=== PATIENT | female | born 1995 | race Caucasian/White ===

== ENCOUNTER 2023-03-25 13:49 | Emergency (ER) | payer BC ==
[~2023-03-25] VITALS: Ht 149.9 cm; Wt 81.6 kg
[2023-03-25] MEDS ORDERED: BACITRACIN ZINC OINT 15 GM TUBE ONE (14:42)
[2023-03-25] MEDS ORDERED: DOXYCYCLINE HYCLATE 100 MG TABLET ONE (14:42)
[2023-03-25] MEDS ORDERED: NEOMY/BACITRA/POLYMYXIN B OINT UD PACKET TP ONE (14:45)
[2023-03-25] MEDS ORDERED: DOXYCYCLINE HYCLATE 100 MG TABLET PO ONE (14:45)
[2023-03-25 15:01] VITALS: BP 141/84; TEMP 98.3; O2SAT 99
== END 2023-03-25 15:02 | disposition home or self-care (01) ==
LOC: ER 13:49
DX: L03.113 Cellulitis of right upper limb (principal); T63.441A Toxic effect of venom of bees, accidental (unintentional), initial encounter; Y92.89 Other specified places as the place of occurrence of the external cause
CPT/HCPCS: A4663